=== PATIENT | female | born 1965 | race Caucasian/White ===

== ENCOUNTER 2017-09-11 14:59 | Inpatient (IN) | payer OTHER ==
[2017-09-11] MEDS ORDERED: DULOXETINE 30 MG CAP DR PO (16:00)
[2017-09-11] MEDS ORDERED: LORAZEPAM 2 MG INJ IV (16:00)
[2017-09-11] MEDS: PANTOPRAZOLE 40 MG INJ IV (17:27)
[2017-09-11] MEDS: CEFTRIAXONE 1 GM/50 ML (PMX) 50 ML IVPB (20:50)
[2017-09-11] MEDS: CHLORDIAZEPOXIDE 25 MG CAP PO (20:51)
[2017-09-11] MEDS: GABAPENTIN 400 MG CAP PO (20:51)
[2017-09-12] MEDS: PANTOPRAZOLE 40 MG INJ IV ×2 (06:15→18:00)
[2017-09-12 08:52] LABS: ADD MAN DIFF? NO
[2017-09-12] MEDS: LOSARTAN 25 MG TAB PO (09:00)
[2017-09-12 09:07] LABS: BASOPHIL # 0.1 10^3/ul (0.0-0.1); EOSINOPHILS # 0.2 10^3/ul (0.0-0.5); EOSINOPHILS % 2.1 % (0.0-7.0); HEMATOCRIT 27.4 % (37.0-47.0); HEMOGLOBIN 9.2 g/dl (12.0-16.0); LYMPHOCYTES # 1.7 10^3/ul (0.8-2.9); LYMPHOCYTES % 15.3 % (15.0-51.0); MEAN CORPUSCULAR HEMOGLOBIN 36.1 pg (29.0-33.0); MEAN CORPUSCULAR HGB CONC 33.6 g/dl (32.0-37.0); MEAN CORPUSCULAR VOLUME 107.5 fl (82.0-101.0); MEAN PLATELET VOLUME 12.5 fl (7.4-10.4); MONOCYTE # 1.4 10^3/ul (0.3-0.9); MONOCYTES % 12.1 % (0.0-11.0); NEUTROPHIL # 7.7 10^3/ul (1.6-7.5); NUCLEATED RED BLOOD CELLS # 0.1 10^3/ul (0.0-0.0); NUCLEATED RED BLOOD CELLS% 0.4 /100WBC (0.0-0.0); PLATELET COUNT 102 10^3/UL (140-415); RED BLOOD COUNT 2.55 10^6/ul (4.20-5.40); RED CELL DISTRIBUTION WIDTH 17.1 % (11.5-14.5)
[2017-09-12 09:07] LABS: WHITE BLOOD COUNT 11.2 10^3/ul (4.8-10.8)
[2017-09-12 09:19] LABS: ALANINE AMINOTRANSFERASE 35 IU/L (13-69); ALBUMIN 2.6 g/dl (3.3-4.9); ALBUMIN/GLOBULIN RATIO 0.72; ALKALINE PHOSPHATASE 151 IU/L (42-121); ANION GAP 13 (8-16); ASPARTATE AMINO TRANSFERASE 90 IU/L (15-46); BILIRUBIN,INDIRECT 2.1 mg/dl (0-1.1); BILIRUBIN,TOTAL 3.9 mg/dl (0.2-1.3); BLOOD UREA NITROGEN 12 mg/dl (7-20); CALCIUM 8.2 mg/dl (8.4-10.2); CARBON DIOXIDE 26 mmol/L (21-31); CHLORIDE 104 mmol/L (97-110); CREATININE 0.55 mg/dl (0.44-1.00); GLUCOSE 82 mg/dl (70-220); POTASSIUM 3.5 mmol/L (3.5-5.1); SODIUM 139 mmol/L (135-144); TOTAL PROTEIN 6.2 g/dl (6.1-8.1)
[2017-09-12] MEDS: MULTIVITAMINS 10 ML, THIAMINE 100 MG, FOLIC ACID 1 MG in SOD CHLORIDE 0.9% 1,000 ML IVPB (10:11)
[2017-09-12] MEDS: FERROUS SULFATE (EC) 325 MG TAB PO (10:12)
[2017-09-12] MEDS: CHLORDIAZEPOXIDE 25 MG CAP PO ×2 (10:12→20:37)
[2017-09-12] MEDS: DULOXETINE 30 MG CAP DR PO (10:12)
[2017-09-12] MEDS: GABAPENTIN 400 MG CAP PO ×2 (10:12→13:30)
[2017-09-12 16:00] LABS: HEMATOCRIT 27.8 % (37.0-47.0); HEMOGLOBIN 9.3 g/dl (12.0-16.0)
[2017-09-12] MEDS: ALBUMIN HUMAN 25% 100 ML IV (16:43)
[2017-09-12] MEDS: ALBUTEROL/IPRATROPIUM (NEB) 3 ML AMP HHN ×2 (17:29→20:28)
[2017-09-12] MEDS: CEFTRIAXONE 1 GM/50 ML (PMX) 50 ML IVPB (20:40)
[2017-09-13] MEDS: ALBUMIN HUMAN 25% 100 ML IV ×2 (00:36→08:45)
[2017-09-13] MEDS: ALBUTEROL/IPRATROPIUM (NEB) 3 ML AMP HHN ×6 (01:00→21:00)
[2017-09-13] MEDS: PANTOPRAZOLE 40 MG INJ IV ×2 (05:47→17:18)
[2017-09-13 08:08] LABS: ADD MAN DIFF? NO
[2017-09-13 08:17] LABS: ABNORMAL IP MESSAGE 1; BASOPHIL # 0.1 10^3/ul (0.0-0.1); BASOPHILS % 0.5 % (0.0-2.0); EOSINOPHILS # 0.1 10^3/ul (0.0-0.5); EOSINOPHILS % 0.9 % (0.0-7.0); HEMATOCRIT 24.3 % (37.0-47.0); LYMPHOCYTES # 1.5 10^3/ul (0.8-2.9); LYMPHOCYTES % 12.6 % (15.0-51.0); MEAN CORPUSCULAR HEMOGLOBIN 35.4 pg (29.0-33.0); MEAN CORPUSCULAR HGB CONC 32.9 g/dl (32.0-37.0); MEAN CORPUSCULAR VOLUME 107.5 fl (82.0-101.0); MEAN PLATELET VOLUME 12.3 fl (7.4-10.4); MONOCYTE # 1.6 10^3/ul (0.3-0.9); MONOCYTES % 13.5 % (0.0-11.0); NEUTROPHIL # 8.7 10^3/ul (1.6-7.5); NEUTROPHILS % 72.1 % (39.0-77.0); PLATELET COUNT 90 10^3/UL (140-415); RED BLOOD COUNT 2.26 10^6/ul (4.20-5.40); RED CELL DISTRIBUTION WIDTH 17.2 % (11.5-14.5)
[2017-09-13 08:26] LABS: POSITIVE DIFF @See below
[2017-09-13 08:30] LABS: ALANINE AMINOTRANSFERASE 33 IU/L (13-69); ALBUMIN 2.8 g/dl (3.3-4.9); ALBUMIN/GLOBULIN RATIO 0.84; ALKALINE PHOSPHATASE 135 IU/L (42-121); ANION GAP 13 (8-16); ASPARTATE AMINO TRANSFERASE 66 IU/L (15-46); BILIRUBIN,INDIRECT 1.8 mg/dl (0-1.1); BILIRUBIN,TOTAL 2.6 mg/dl (0.2-1.3); BLOOD UREA NITROGEN 8 mg/dl (7-20); CALCIUM 8.4 mg/dl (8.4-10.2); CARBON DIOXIDE 26 mmol/L (21-31); CHLORIDE 102 mmol/L (97-110); CREATININE 0.48 mg/dl (0.44-1.00); GLUCOSE 116 mg/dl (70-220); SODIUM 138 mmol/L (135-144); TOTAL PROTEIN 6.1 g/dl (6.1-8.1)
[2017-09-13 08:31] LABS: MAGNESIUM 1.2 mg/dl (1.7-2.5)
[2017-09-13 08:31] LABS: PHOSPHORUS 3.7 mg/dl (2.5-4.9)
[2017-09-13 08:39] LABS: POTASSIUM 2.7 mmol/L (3.5-5.1)
[2017-09-13] MEDS: DULOXETINE 30 MG CAP DR PO (08:44)
[2017-09-13] MEDS: FERROUS SULFATE (EC) 325 MG TAB PO (08:44)
[2017-09-13] MEDS: CHLORDIAZEPOXIDE 25 MG CAP PO ×2 (08:44→20:03)
[2017-09-13] MEDS: FOLIC ACID 0.4 MG TAB PO (08:45)
[2017-09-13] MEDS: THIAMINE 100 MG TAB PO (08:45)
[2017-09-13] MEDS ORDERED: MAGNESIUM SULFATE 4 GM/100 ML 100 ML IVPB (10:00)
[2017-09-13] MEDS: traMADol 50 MG TAB PO ×2 (10:16→20:03)
[2017-09-13] MEDS: MAG SULFATE 2GM IN 50 ML IVPB ×2 (11:38→13:58)
[2017-09-13] MEDS: POTASSIUM CHLORIDE (SR) 20 MEQ TAB PO ×2 (13:07→20:03)
[2017-09-13] MEDS: CEFTRIAXONE 1 GM/50 ML (PMX) 50 ML IVPB (20:03)
[2017-09-14] MEDS: ALBUTEROL/IPRATROPIUM (NEB) 3 ML AMP HHN ×6 (01:00→21:33)
[2017-09-14] MEDS: PANTOPRAZOLE 40 MG INJ IV ×2 (05:12→17:46)
[2017-09-14] MEDS: traMADol 50 MG TAB PO ×2 (05:12→16:19)
[2017-09-14 06:49] LABS: WHITE BLOOD COUNT 12.4 10^3/ul (4.8-10.8)
[2017-09-14 06:49] LABS: ABNORMAL IP MESSAGE 1; HEMATOCRIT 26.5 % (37.0-47.0); HEMOGLOBIN 8.7 g/dl (12.0-16.0); MEAN CORPUSCULAR HEMOGLOBIN 35.5 pg (29.0-33.0); MEAN CORPUSCULAR HGB CONC 32.8 g/dl (32.0-37.0); MEAN CORPUSCULAR VOLUME 108.2 fl (82.0-101.0); MEAN PLATELET VOLUME 12.1 fl (7.4-10.4); NUCLEATED RED BLOOD CELLS% 0.2 /100WBC (0.0-0.0); PLATELET COUNT 106 10^3/UL (140-415); RED BLOOD COUNT 2.45 10^6/ul (4.20-5.40); RED CELL DISTRIBUTION WIDTH 17.5 % (11.5-14.5)
[2017-09-14] MEDS: SOD CHLORIDE 0.9% 500 ML IV (06:53)
[2017-09-14 07:14] LABS: ADD MAN DIFF? YES; POSITIVE DIFF @See below
[2017-09-14 08:10] LABS: ALANINE AMINOTRANSFERASE 35 IU/L (13-69); ALBUMIN/GLOBULIN RATIO 0.88; ALKALINE PHOSPHATASE 137 IU/L (42-121); ANION GAP 12 (8-16); ASPARTATE AMINO TRANSFERASE 55 IU/L (15-46); BILIRUBIN,INDIRECT 2.4 mg/dl (0-1.1); BILIRUBIN,TOTAL 3.4 mg/dl (0.2-1.3); BLOOD UREA NITROGEN 6 mg/dl (7-20); CALCIUM 8.2 mg/dl (8.4-10.2); CARBON DIOXIDE 26 mmol/L (21-31); CHLORIDE 101 mmol/L (97-110); CREATININE 0.43 mg/dl (0.44-1.00); GLUCOSE 106 mg/dl (70-220); MAGNESIUM 1.9 mg/dl (1.7-2.5); POTASSIUM 3.2 mmol/L (3.5-5.1); TOTAL PROTEIN 6.4 g/dl (6.1-8.1)
[2017-09-14 08:13] LABS: SODIUM 136 mmol/L (135-144)
[2017-09-14] MEDS: THIAMINE 100 MG TAB PO (08:13)
[2017-09-14] MEDS: FOLIC ACID 0.4 MG TAB PO (08:13)
[2017-09-14] MEDS: DULOXETINE 30 MG CAP DR PO (08:13)
[2017-09-14] MEDS: MAGNESIUM OXIDE 400 MG TAB PO (08:13)
[2017-09-14] MEDS: POTASSIUM CHLORIDE (SR) 20 MEQ TAB PO ×4 (08:14→20:34)
[2017-09-14] MEDS: FERROUS SULFATE (EC) 325 MG TAB PO (08:14)
[2017-09-14] MEDS: CHLORDIAZEPOXIDE 25 MG CAP PO ×2 (08:46→20:40)
[2017-09-14 09:37] LABS: ANISOCYTOSIS 3+ (0-0); BASOPHIL #M 0.2 10^3/ul (0.0-0.0); BASOPHILS % (M) 2 % (0-2); GIANT THROMBO% (M) 10 % (0-0); LYMPHOCYTES #M 1.9 10^3/ul (0.8-2.9); LYMPHOCYTES % (M) 16 % (15-51); MONOCYTE #M 2.1 10^3/ul (0.3-0.9); MONOCYTES % (M) 17 % (0-11); PLATELET ESTIMATE DECREASED; POLYCHROMASIA 1+ (0-0); SEGMENTED NEUTROPHILS (M) % 65 % (39-77); SMUDGE%M 8 % (0-0)
[2017-09-14] MEDS ORDERED: LACTULOSE 30ML CUP PO (13:00)
[2017-09-14 14:03] LABS: OCCULT BLOOD STOOL POSITIVE (NEGATIVE)
[2017-09-14] MEDS: MIDODRINE 5 MG TAB PO (16:11)
[2017-09-14] MEDS: CEFTRIAXONE 1 GM/50 ML (PMX) 50 ML IVPB (20:33)
[2017-09-14] MEDS: NYSTATIN/TRIAMCINOLONE 15 GM OINT TOP (20:36)
[2017-09-15] MEDS: ALBUTEROL/IPRATROPIUM (NEB) 3 ML AMP HHN ×6 (00:54→21:07)
[2017-09-15] MEDS: traMADol 50 MG TAB PO ×2 (03:24→20:46)
[2017-09-15] MEDS: PANTOPRAZOLE 40 MG INJ IV ×2 (06:02→17:33)
[2017-09-15 06:41] LABS: ANION GAP 13 (8-16); BLOOD UREA NITROGEN 6 mg/dl (7-20); CALCIUM 8.3 mg/dl (8.4-10.2); CARBON DIOXIDE 24 mmol/L (21-31); CHLORIDE 103 mmol/L (97-110); CREATININE 0.43 mg/dl (0.44-1.00); GLUCOSE 107 mg/dl (70-220); SODIUM 136 mmol/L (135-144)
[2017-09-15] MEDS: POTASSIUM CHLORIDE (SR) 20 MEQ TAB PO ×3 (09:00→13:00)
[2017-09-15] MEDS: FOLIC ACID 0.4 MG TAB PO (09:01)
[2017-09-15] MEDS: MAGNESIUM OXIDE 400 MG TAB PO (09:01)
[2017-09-15] MEDS: THIAMINE 100 MG TAB PO (09:02)
[2017-09-15] MEDS: CHLORDIAZEPOXIDE 25 MG CAP PO ×3 (09:02→20:46)
[2017-09-15] MEDS: FERROUS SULFATE (EC) 325 MG TAB PO (09:02)
[2017-09-15] MEDS: DULOXETINE 30 MG CAP DR PO (09:02)
[2017-09-15] MEDS: NYSTATIN/TRIAMCINOLONE 15 GM OINT TOP ×2 (09:03→20:47)
[2017-09-15] MEDS: MIDODRINE 5 MG TAB PO ×2 (09:41→17:35)
[2017-09-15] MEDS: LORAZEPAM 1 MG TAB PO ×2 (14:21→23:54)
[2017-09-15] MEDS: CEFTRIAXONE 1 GM/50 ML (PMX) 50 ML IVPB (20:45)
[2017-09-16] MEDS: ALBUTEROL/IPRATROPIUM (NEB) 3 ML AMP HHN ×6 (00:39→20:15)
[2017-09-16] MEDS: LORAZEPAM 1 MG TAB PO ×3 (06:40→21:35)
[2017-09-16] MEDS: PANTOPRAZOLE 40 MG INJ IV ×2 (06:40→18:27)
[2017-09-16] MEDS: FOLIC ACID 0.4 MG TAB PO (09:20)
[2017-09-16] MEDS: ERGOCALCIFEROL 50,000 UNIT CAP PO (09:21)
[2017-09-16] MEDS: THIAMINE 100 MG TAB PO (09:21)
[2017-09-16] MEDS: FERROUS SULFATE (EC) 325 MG TAB PO (09:21)
[2017-09-16] MEDS: POTASSIUM CHLORIDE (SR) 20 MEQ TAB PO (09:21)
[2017-09-16] MEDS: DULOXETINE 30 MG CAP DR PO (09:21)
[2017-09-16] MEDS: MAGNESIUM OXIDE 400 MG TAB PO (09:21)
[2017-09-16] MEDS: NYSTATIN/TRIAMCINOLONE 15 GM OINT TOP ×2 (09:22→20:06)
[2017-09-16] MEDS: MIDODRINE 5 MG TAB PO ×2 (09:22→18:27)
[2017-09-16] MEDS: CHLORDIAZEPOXIDE 25 MG CAP PO ×3 (09:22→20:06)
[2017-09-16 13:19] LABS: ABNORMAL IP MESSAGE 1; HEMATOCRIT 25.9 % (37.0-47.0); HEMOGLOBIN 8.6 g/dl (12.0-16.0); MEAN CORPUSCULAR HEMOGLOBIN 36.6 pg (29.0-33.0); MEAN CORPUSCULAR HGB CONC 33.2 g/dl (32.0-37.0); MEAN CORPUSCULAR VOLUME 110.2 fl (82.0-101.0); MEAN PLATELET VOLUME 11.9 fl (7.4-10.4); PLATELET COUNT 131 10^3/UL (140-415); RED BLOOD COUNT 2.35 10^6/ul (4.20-5.40); RED CELL DISTRIBUTION WIDTH 16.7 % (11.5-14.5)
[2017-09-16 13:19] LABS: WHITE BLOOD COUNT 10.6 10^3/ul (4.8-10.8)
[2017-09-16 13:23] LABS: ADD MAN DIFF? YES; POSITIVE DIFF @See below
[2017-09-16 13:46] LABS: ALANINE AMINOTRANSFERASE 33 IU/L (13-69); ALBUMIN 2.9 g/dl (3.3-4.9); ALBUMIN/GLOBULIN RATIO 0.87; ALKALINE PHOSPHATASE 123 IU/L (42-121); ANION GAP 14 (8-16); ASPARTATE AMINO TRANSFERASE 47 IU/L (15-46); BILIRUBIN,INDIRECT 2.3 mg/dl (0-1.1); BLOOD UREA NITROGEN 7 mg/dl (7-20); CALCIUM 8.3 mg/dl (8.4-10.2); CARBON DIOXIDE 24 mmol/L (21-31); CHLORIDE 103 mmol/L (97-110); CREATININE 0.48 mg/dl (0.44-1.00); GLUCOSE 105 mg/dl (70-220); POTASSIUM 3.8 mmol/L (3.5-5.1); SODIUM 137 mmol/L (135-144); TOTAL PROTEIN 6.2 g/dl (6.1-8.1)
[2017-09-16] MEDS: CEFTRIAXONE 1 GM/50 ML (PMX) 50 ML IVPB (20:05)
[2017-09-16] MEDS: traMADol 50 MG TAB PO (20:06)
[2017-09-17] MEDS: ALBUTEROL/IPRATROPIUM (NEB) 3 ML AMP HHN ×6 (01:00→21:26)
[2017-09-17] MEDS: LORAZEPAM 1 MG TAB PO ×3 (05:46→21:51)
[2017-09-17] MEDS: PANTOPRAZOLE 40 MG INJ IV ×2 (05:46→17:34)
[2017-09-17] MEDS: FOLIC ACID 0.4 MG TAB PO (08:27)
[2017-09-17] MEDS: POTASSIUM CHLORIDE (SR) 20 MEQ TAB PO (08:27)
[2017-09-17] MEDS: CHLORDIAZEPOXIDE 25 MG CAP PO ×3 (08:28→20:04)
[2017-09-17] MEDS: NYSTATIN/TRIAMCINOLONE 15 GM OINT TOP ×2 (08:28→21:51)
[2017-09-17] MEDS: DULOXETINE 30 MG CAP DR PO (08:28)
[2017-09-17] MEDS: THIAMINE 100 MG TAB PO (08:28)
[2017-09-17] MEDS: FERROUS SULFATE (EC) 325 MG TAB PO (08:28)
[2017-09-17] MEDS: MAGNESIUM OXIDE 400 MG TAB PO (08:28)
[2017-09-17] MEDS: MIDODRINE 5 MG TAB PO ×2 (08:30→17:34)
[2017-09-17] MEDS: CEFTRIAXONE 1 GM/50 ML (PMX) 50 ML IVPB (20:04)
[2017-09-17] MEDS: traMADol 50 MG TAB PO (20:05)
[2017-09-18] MEDS: ALBUTEROL/IPRATROPIUM (NEB) 3 ML AMP HHN ×6 (00:43→20:50)
[2017-09-18] MEDS: traMADol 50 MG TAB PO (02:22)
[2017-09-18] MEDS: PANTOPRAZOLE 40 MG INJ IV ×2 (05:30→18:14)
[2017-09-18] MEDS: LORAZEPAM 1 MG TAB PO ×3 (05:30→21:19)
[2017-09-18 09:11] LABS: ADD MAN DIFF? NO
[2017-09-18 09:22] LABS: ABNORMAL IP MESSAGE 1; BASOPHIL # 0.1 10^3/ul (0.0-0.1); BASOPHILS % 0.8 % (0.0-2.0); EOSINOPHILS # 0.2 10^3/ul (0.0-0.5); EOSINOPHILS % 1.7 % (0.0-7.0); HEMATOCRIT 26.3 % (37.0-47.0); HEMOGLOBIN 8.4 g/dl (12.0-16.0); LYMPHOCYTES # 1.7 10^3/ul (0.8-2.9); LYMPHOCYTES % 16.4 % (15.0-51.0); MEAN CORPUSCULAR HEMOGLOBIN 34.7 pg (29.0-33.0); MEAN CORPUSCULAR HGB CONC 31.9 g/dl (32.0-37.0); MEAN CORPUSCULAR VOLUME 108.7 fl (82.0-101.0); MEAN PLATELET VOLUME 11.6 fl (7.4-10.4); MONOCYTE # 2.6 10^3/ul (0.3-0.9); MONOCYTES % 24.1 % (0.0-11.0); NEUTROPHILS % 56.2 % (39.0-77.0); PLATELET COUNT 165 10^3/UL (140-415); RED BLOOD COUNT 2.42 10^6/ul (4.20-5.40); RED CELL DISTRIBUTION WIDTH 16.2 % (11.5-14.5)
[2017-09-18 09:22] LABS: WHITE BLOOD COUNT 10.6 10^3/ul (4.8-10.8)
[2017-09-18 09:41] LABS: ALANINE AMINOTRANSFERASE 28 IU/L (13-69); ALBUMIN 2.8 g/dl (3.3-4.9); ALBUMIN/GLOBULIN RATIO 0.82; ALKALINE PHOSPHATASE 122 IU/L (42-121); ANION GAP 14 (8-16); ASPARTATE AMINO TRANSFERASE 50 IU/L (15-46); BILIRUBIN,INDIRECT 1.5 mg/dl (0-1.1); BILIRUBIN,TOTAL 1.6 mg/dl (0.2-1.3); BLOOD UREA NITROGEN 11 mg/dl (7-20); CALCIUM 8.3 mg/dl (8.4-10.2); CARBON DIOXIDE 25 mmol/L (21-31); CHLORIDE 105 mmol/L (97-110); CREATININE 0.52 mg/dl (0.44-1.00); GLUCOSE 101 mg/dl (70-220); POTASSIUM 3.6 mmol/L (3.5-5.1); SODIUM 140 mmol/L (135-144); TOTAL PROTEIN 6.2 g/dl (6.1-8.1)
[2017-09-18] MEDS: POTASSIUM CHLORIDE (SR) 20 MEQ TAB PO (10:21)
[2017-09-18] MEDS: FOLIC ACID 0.4 MG TAB PO (10:21)
[2017-09-18] MEDS: MAGNESIUM OXIDE 400 MG TAB PO (10:22)
[2017-09-18] MEDS: DULOXETINE 30 MG CAP DR PO (10:22)
[2017-09-18] MEDS: CHLORDIAZEPOXIDE 25 MG CAP PO ×3 (10:22→20:23)
[2017-09-18] MEDS: FERROUS SULFATE (EC) 325 MG TAB PO (10:22)
[2017-09-18] MEDS: THIAMINE 100 MG TAB PO (10:23)
[2017-09-18] MEDS: NYSTATIN/TRIAMCINOLONE 15 GM OINT TOP ×2 (10:23→20:23)
[2017-09-18] MEDS: MIDODRINE 5 MG TAB PO ×2 (10:24→18:19)
[2017-09-18] MEDS: CEFTRIAXONE 1 GM/50 ML (PMX) 50 ML IVPB (20:23)
[2017-09-19] MEDS: ALBUTEROL/IPRATROPIUM (NEB) 3 ML AMP HHN ×5 (01:53→16:25)
[2017-09-19] MEDS: LORAZEPAM 1 MG TAB PO ×2 (05:25→13:30)
[2017-09-19] MEDS: PANTOPRAZOLE 40 MG INJ IV ×2 (05:25→17:02)
[2017-09-19] MEDS: MAGNESIUM OXIDE 400 MG TAB PO (09:21)
[2017-09-19] MEDS: POTASSIUM CHLORIDE (SR) 20 MEQ TAB PO (09:21)
[2017-09-19] MEDS: FOLIC ACID 0.4 MG TAB PO (09:21)
[2017-09-19] MEDS: THIAMINE 100 MG TAB PO (09:21)
[2017-09-19] MEDS: NYSTATIN/TRIAMCINOLONE 15 GM OINT TOP (09:22)
[2017-09-19] MEDS: DULOXETINE 30 MG CAP DR PO (09:22)
[2017-09-19] MEDS: FERROUS SULFATE (EC) 325 MG TAB PO (09:22)
[2017-09-19] MEDS: CHLORDIAZEPOXIDE 25 MG CAP PO ×2 (09:22→13:30)
[2017-09-19] MEDS: MIDODRINE 5 MG TAB PO ×2 (09:25→17:02)
== END 2017-09-19 19:15 | disposition home or self-care (01) | DRG 378 ==
LOC: MS2 09-15 17:59 → TEL 14:59 → MS2 09-14 22:40
DX: K92.0 Hematemesis (principal); D61.818 Other pancytopenia; F10.239 Alcohol dependence with withdrawal, unspecified; N13.30 Unspecified hydronephrosis; B19.20 Unspecified viral hepatitis C without hepatic coma; F17.210 Nicotine dependence, cigarettes, uncomplicated; F32.9 Major depressive disorder, single episode, unspecified; K74.69 Other cirrhosis of liver; I95.9 Hypotension, unspecified; K76.0 Fatty (change of) liver, not elsewhere classified; K31.89 Other diseases of stomach and duodenum; N20.0 Calculus of kidney; K29.80 Duodenitis without bleeding; K52.9 Noninfective gastroenteritis and colitis, unspecified; E87.6 Hypokalemia; R33.9 Retention of urine, unspecified
CPT/HCPCS: 74176; 76705; 80048; 80053; 82270; 83735; 84100; 85014; 85018; 85025; 94640; 94664; 97110; 97162; 97165; 97530

== ENCOUNTER 2017-10-18 16:46 | Emergency (ER) | payer OTHER ==
[2017-10-18] MEDS: ONDANSETRON (ODT) 4 MG TAB ODT (17:56)
[2017-10-18] MEDS: HYDROCODONE/APAP (10/325) TAB PO (17:56)
[2017-10-18 18:02] LABS: WHITE BLOOD COUNT 10.8 10^3/ul (4.8-10.8)
[2017-10-18 18:02] LABS: ABNORMAL IP MESSAGE 1; HEMATOCRIT 31.7 % (37.0-47.0); HEMOGLOBIN 10.3 g/dl (12.0-16.0); IMMATURE GRANS #M 0.03 10^3/ul; IMMATURE GRANS % (M) 0.3 %; MEAN CORPUSCULAR HEMOGLOBIN 31.1 pg (29.0-33.0); MEAN CORPUSCULAR HGB CONC 32.5 g/dl (32.0-37.0); MEAN CORPUSCULAR VOLUME 95.8 fl (82.0-101.0); MEAN PLATELET VOLUME 10.5 fl (7.4-10.4); PLATELET COUNT 141 10^3/UL (140-415); RED BLOOD COUNT 3.31 10^6/ul (4.20-5.40)
[2017-10-18 18:03] LABS: ADD MAN DIFF? YES; POSITIVE DIFF @See below
[2017-10-18 18:20] LABS: INR 1.51; PROTIME 18.5 Sec (11.9-14.9); PT RATIO 1.4
[2017-10-18 18:21] LABS: PARTIAL THROMBOPLASTIN TIME 41.5 Sec (25.0-35.0)
[2017-10-18 18:22] LABS: ALANINE AMINOTRANSFERASE 24 IU/L (13-69); ALBUMIN 2.9 g/dl (3.3-4.9); ALBUMIN/GLOBULIN RATIO 0.74; ALKALINE PHOSPHATASE 161 IU/L (42-121); ANION GAP 11 (8-16); ASPARTATE AMINO TRANSFERASE 52 IU/L (15-46); BILIRUBIN,INDIRECT 1.4 mg/dl (0-1.1); BILIRUBIN,TOTAL 1.4 mg/dl (0.2-1.3); BLOOD UREA NITROGEN 4 mg/dl (7-20); CALCIUM 8.3 mg/dl (8.4-10.2); CARBON DIOXIDE 25 mmol/L (21-31); CHLORIDE 105 mmol/L (97-110); CREATININE 0.45 mg/dl (0.44-1.00); GLUCOSE 103 mg/dl (70-220); POTASSIUM 3.2 mmol/L (3.5-5.1); SODIUM 138 mmol/L (135-144); TOTAL PROTEIN 6.8 g/dl (6.1-8.1)
[2017-10-18 18:41] LABS: ANISOCYTOSIS 1+ (0-0); EOSINOPHILS % (M) 4 % (0-7); HYPOCHROMASIA 1+ (0-0); LYMPHOCYTES #M 1.1 10^3/ul (0.8-2.9); LYMPHOCYTES % (M) 11 % (15-51); MONOCYTE #M 0.9 10^3/ul (0.3-0.9); MONOCYTES % (M) 9 % (0-11); PLATELET ESTIMATE NORMAL; POLYCHROMASIA 1+ (0-0); REACTIVE LYMPHOCYTES #M 0.1 10^3/ul (0.0-0.0); REACTIVE LYMPHOCYTES% (M) 1 % (0-0); SEGMENTED NEUTROPHILS (M) % 75 % (39-77); SMUDGE%M 5 % (0-0)
[2017-10-18] MEDS: hydrOXYzine HCL 25 MG TAB PO (20:09)
== END 2017-10-18 22:11 | disposition home or self-care (01) ==
LOC: E/R 16:46
DX: S09.90XA Unspecified injury of head, initial encounter (principal); S40.012A Contusion of left shoulder, initial encounter; F10.10 Alcohol abuse, uncomplicated; K70.30 Alcoholic cirrhosis of liver without ascites; R60.0 Localized edema; I10 Essential (primary) hypertension; F17.210 Nicotine dependence, cigarettes, uncomplicated; W22.8XXA Striking against or struck by other objects, initial encounter; Y92.9 Unspecified place or not applicable
CPT/HCPCS: 36415; 70450; 73030; 80053; 80307; 85025; 85610; 85730; 93005; 93970; 99285-25

== ENCOUNTER 2018-06-29 20:37 | Emergency (ER) | payer OTHER ==
[2018-06-29] MEDS: SOD CHLORIDE 0.9% 1,000 ML IV (23:03)
[2018-06-29] MEDS: DIPHENHYDRAMINE 50 MG INJ IV (23:04)
[2018-06-29] MEDS: KETOROLAC 30 MG INJ IV (23:04)
[2018-06-29] MEDS: PROCHLORPERAZINE 10 MG INJ IV (23:51)
== END 2018-06-30 00:46 | disposition home or self-care (01) ==
LOC: FTE 06-30 00:46
DX: R51 Headache (principal); I10 Essential (primary) hypertension; F17.210 Nicotine dependence, cigarettes, uncomplicated
CPT/HCPCS: 70450; 96361; 96374; 96375; 99285-25